=== PATIENT | female | born 1970 | race Caucasian/White ===

== ENCOUNTER → 2017-10-28 | Outpatient (CLI) | payer BC | LOC: WI 08:37 | PROVIDERS: ATTEND Specialist | DX: Z12.31 Encounter for screening mammogram for malignant neoplasm of breast (principal) | CPT/HCPCS: 77067; G0202 ==

== ENCOUNTER → 2017-12-03 | Outpatient (CLI) | payer BC ==
--- NOTE | 2017-12-03 16:58 | WOMENS IMAGING REPORT ---
EXAM DESCRIPTION: 3D DX MAMMO LEFT UNILAT COMPLETED DATE/TIME: 12/03/2017 9:35 am REASON FOR STUDY: NODULAR DENSITY N63.21 UNSPECIFIED LUMP IN THE LEFT BREAST, UPPER OUTER QUAD COMPARISON: Mammograms 10/28/2017 TECHNIQUE: Cone compression craniocaudal and mediolateral oblique images, left whole breast 90 medi olateral image of the breast recorded using digital acquisition and breast tomosynthesis. LIMITATIONS: None. FINDINGS: BREAST: Left MASSES: No suspicious masses. Findings described on screening mammogram 10/28/2017 likely represente d superimposed shadows. No discrete findings are present on today's follow-up cone compression and t omosynthesis images CALCIFICATIONS: No new or suspicious calcifications. ARCHITECTURAL DISTORTION: None. DEVELOPING DENSITY: None. ASYMMETRY: None noted. OTHER: No other significant findings. Read with the assistance of CAD. .[facility] - R2 Cenova Version 1.3 .[facility] - R2 Cenova Version 1.3 .[facility] - R2 Cenova Version 2.4 .[facility] [place] - R2 Cenova Version 2.4 .[facility] - R2 Oyster Shipper Version 9.2 IMPRESSION: No mammographic/ tomosynthesis evidence for malignancy left breast BREAST DENSITY: c. The breasts are heterogeneously dense, which may obscure small masses. BIRAD: 1 Negative. RECOMMENDATION: RECOMMENDED FOLLOW UP: Please continue yearly bilateral screening mammography/ tomos ynthesis in October 2018 SPECIFIC INTERVENTION/IMAGING/CONSULTATION RECOMMENDED:No additional intervention/ imaging/consultati on needed at this time. COMMUNICATION:Patient notified by letter COMMENT: The patient has been notified of the results by letter per MQSA requirements. Additional no tification policies are in place for contacting patient with suspicious or incomplete findings. Quality ID #[id number]: The [employer] recommends an annual screening mammogram for women aged 40 years or over. This facility utilizes a reminder system to ensure that all patients receive reminder letters, and/or direct phone calls for appointments. This includes reminders for routine scr eening mammograms, diagnostic mammograms, or other Breast Imaging Interventions when appropriate. Th is patient will be placed in the appropriate reminder system. The [employer] (ACR) has developed recommendations for screening MRI of the breast s in certain patient populations, to be used in conjunction with mammography. Breast MRI surveillanc e may be appropriate for women with more than 20% lifetime risk of developing breast cancer as deter mined by genetic testing, significant family history of the disease, or history of mantle radiation f or Hodgkins Disease. ACR Practice Guidelines 2008. DBT Technology DBT is a type of tomographic mammography. With conventional mammography, overlapping breast tissue ma y make lesions difficult to detect, even with good compression. DBT uses an x-ray tube that rotates a round the breast, taking images at different angles. These images are then combined to create thin sl ices of the breast that the radiologist can view as a 3D reconstruction. The [employer] can perform full-field digital mammograms (2D imaging); or DBT (3D imaging); or both, in a combination mode that quickly performs both the mammogram and the tomosynthesis scan while the breast is still compressed. PQRS 6045F: Fluoroscopic imaging is not utilized for breast tomosynthesis. TECHNICAL DOCUMENTATION: FINDING NUMBER: (1) ASSESSMENT: (1) JOB ID: [id number] [employer]- All Rights Reserved
== END ==
LOC: WI 08:47
PROVIDERS: ATTEND Specialist
DX: N63.21 Unspecified lump in the left breast, upper outer quadrant (principal)

== ENCOUNTER 2019-10-28 05:34 | Inpatient (IN) | payer BC ==
[2019-10-21 08:46] LABS: HEMATOCRIT 34.7 % (36.0-47.0); HEMOGLOBIN 11.6 g/dL (12.0-15.5); MEAN CORPUSCULAR HEMOGLOBIN 29.1 pg (27.0-33.4); MEAN CORPUSCULAR HGB CONC 33.3 g/dL (32.0-36.0); MEAN CORPUSCULAR VOLUME 87 fl (80-97); PLATELET COUNT 461 10^3/uL (150-450); RED BLOOD COUNT 3.98 10^6/uL (3.72-5.28); RED CELL DISTRIBUTION WIDTH 14.7 % (11.5-14.0)
[2019-10-21 08:50] LABS: APPEARANCE,URINE CLEAR; BILIRUBIN,URINE NEGATIVE (NEGATIVE); COLOR,URINE YELLOW; GLUCOSE, URINE NEGATIVE (NEGATIVE); KETONES,URINE NEGATIVE (NEGATIVE); LEUKOCYTE ESTERASE,URINE NEGATIVE (NEGATIVE); NITRITE,URINE NEGATIVE (NEGATIVE); PROTEIN,URINE NEGATIVE (NEGATIVE); URINE SPECIFIC GRAVITY 1.023; UROBILINOGEN,URINE NEGATIVE mg/dL (<2.0)
[2019-10-21 09:27] LABS: ANION GAP 8 (5-19); BLOOD UREA NITROGEN 16 mg/dL (7-20); CALCIUM 8.9 mg/dL (8.4-10.2); CARBON DIOXIDE 27 mmol/L (22-30); CHLORIDE 105 mmol/L (98-107); GLUCOSE 99 mg/dL (75-110); POTASSIUM 4.2 mmol/L (3.6-5.0)
--- NOTE | 2019-10-21 11:36 | RADIOLOGY REPORT (SQ) ---
EXAM DESCRIPTION: CHEST PA/LATERAL COMPLETED DATE/TIME: 10/21/2019 8:57 am REASON FOR STUDY: PRE-OP COMPARISON: None. EXAM PARAMETERS: NUMBER OF VIEWS: two views TECHNIQUE: Digital Frontal and Lateral radiographic views of the chest acquired. RADIATION DOSE: NA LIMITATIONS: none FINDINGS: LUNGS AND PLEURA: No opacities, masses or pneumothorax. No pleural effusion. MEDIASTINUM AND HILAR STRUCTURES: No masses or contour abnormalities. HEART AND VASCULAR STRUCTURES: Heart normal size. No evidence for failure. BONES: No acute findings. HARDWARE: None in the chest. OTHER: No other significant finding. IMPRESSION: NO SIGNIFICANT RADIOGRAPHIC FINDING IN THE CHEST. TECHNICAL DOCUMENTATION: JOB ID: [id number] [employer]- All Rights Reserved Reading location - IP/workstation name: [email or web address]
--- NOTE | 2019-10-21 19:16 | EKG REPORT ---
SEVERITY:- NORMAL ECG - SINUS RHYTHM : Confirmed by: Alexandra Byrnes MD 21-Oct-2019 19:15:27
[~2019-10-28 05:34] MED LIST: CEFAZOLIN SODIUM 1 GM in DEXTROSE 5%-WATER 50 ML IV PRN; LACTATED RINGERS 1000 ML IV PRN; LIDOCAINE 0.5% INJ-PF (5 MG/ML) 50 ML SDV SUBCUT PRN
[2019-10-28] MEDS ORDERED: ONDANSETRON HCL INJ/PF 4 MG/2 ML SDV ONE (06:59)
[2019-10-28] MEDS ORDERED: MIDAZOLAM 2 MG/2 ML INJ ONE (06:59)
[2019-10-28] MEDS ORDERED: KETOROLAC TROMETHAMINE 60 MG/2 ML SDV ONE (06:59)
[2019-10-28] MEDS ORDERED: FENTANYL CITRATE INJ/PF 100 MCG/2 ML AMPUL ONE (06:59)
[2019-10-28] MEDS ORDERED: DEXAMETHASONE SOD PHOSPHATE INJ 4 MG/1 ML VIAL ONE (06:59)
[2019-10-28] MEDS ORDERED: MORPHINE SULFATE 10 MG/ML INJ ONE (07:00)
[2019-10-28] MEDS ORDERED: PROPOFOL INJ 200 MG/20 ML VIAL IV ONE (07:00)
[2019-10-28] MEDS ORDERED: BUPIVACAINE INJ/PF LIPOSOME/PF 266 MG/20 ML SDV ONE (07:10)
[2019-10-28] MEDS ORDERED: FENTANYL CITRATE INJ/PF 100 MCG/2 ML AMPUL IV PRN ×3 (07:56)
[2019-10-28] MEDS ORDERED: OXYCODONE-ACETAMINOPHEN 5-325 MG TABLET PO PRN ×4 (07:56→08:35)
[2019-10-28] MEDS ORDERED: PROMETHAZINE HCL INJ 25 MG/1 ML VIAL IV PRN ×2 (07:56)
[2019-10-28] MEDS ORDERED: MORPHINE SULFATE 10 MG/ML INJ IV PRN (07:56)
[2019-10-28] MEDS ORDERED: DIPHENHYDRAMINE HCL 50 MG/ML VIAL IV PRN (07:56)
[2019-10-28] MEDS ORDERED: ONDANSETRON HCL INJ/PF 4 MG/2 ML SDV IV PRN (07:56)
[2019-10-28] MEDS ORDERED: MEPERIDINE HCL/PF INJ 25 MG/1 ML DISP.SYRIN IV PRN (07:56)
[2019-10-28] MEDS ORDERED: MORPHINE SULFATE 10 MG/ML INJ IM PRN (08:37)
[2019-10-28] MEDS ORDERED: PROMETHAZINE HCL INJ 25 MG/1 ML VIAL IM PRN (08:37)
[2019-10-28] MEDS: FENTANYL CITRATE INJ/PF 100 MCG/2 ML AMPUL ONE ×2 (08:40→08:45)
[2019-10-28] MEDS ORDERED: EPHEDRINE SULFATE INJ 50 MG/1 ML AMPULE ONE (08:43)
[2019-10-28] MEDS: MORPHINE SULFATE 10 MG/ML INJ ONE ×2 (08:53→09:03)
[2019-10-28] MEDS: MORPHINE SULFATE 10 MG/ML INJ INJ PRN ×6 (10:06→23:09)
[2019-10-28] MEDS: RINGERS SOLUTION,LACTATED 1,000 ML IV PRN ×2 (10:19→20:35)
--- NOTE | 2019-10-28 11:46 | Operative Report ---
Operative Report DATE OF SURGERY: 10/28/19 PREOPERATIVE DIAGNOSIS: Uterine leiomyoma POSTOPERATIVE DIAGNOSIS: Same OPERATION: Total abdominal hysterectomy bilateral salpingectomy SURGEON: KAYLI MCDONOUGH ANESTHESIA: GA TISSUE REMOVED OR ALTERED: Cervix uterus bilateral salpingectomy COMPLICATIONS: None ESTIMATED BLOOD LOSS: 110 mL's INTRAOPERATIVE FINDINGS: 16 to 18-week size uterus normal ovaries normal tubes normal upper abdomen, normal appendix PROCEDURE: Indications for procedure the patient had symptomatic uterine leiomyoma for a number of years desired an attempted definitive therapy and the usual risk of bleeding infection anesthesia damage to other organs and tissues is been discussed the patient and understood. She desires ovarian preservation Procedure Patient was taken to the operating room and under care taken placed on the operative table antibiotics been given preoperatively and she was prepped and draped in the usual manner for a abdominal hysterectomy. Through a midline incision extended subsequent fat and fascia, the peritoneum was then without difficulty and the bladder and uterus exteriorized and brought in the operative field. Alves catheter had been performed prior to this step and surgical timeout had been performed. The anatomy was normalized and values were identified cross clamped cut suture ligated and held. The utero-ovarian ligaments were bilaterally cross clamped cut and suture ligated and cauterized using LigaSure advanced device. This extended down to the level of the uterine vessels which were suture-ligated and the cervix and uterus was handed off the operative field uneventfully. The vagina was then closed in a running interrupted #1 chromic catgut good hemostasis was assured. Attention was turned to the tubes bilaterally which were removed with the LigaSure advanced and handed off the operative field. The ovaries appear to be normal. The fascia was then closed with a double-stranded #1 PDS suture and subcuticular stitch of 3 oh was placed closed with 3-0 plain gut the skin is approximate skin christina. Exparel was used for postoperative analgesia. Patient taken recovery in stable condition
[2019-10-28] MEDS ORDERED: VECURONIUM BROMIDE INJ 10 MG VIAL IV ONE (13:25)
[2019-10-28] MEDS ORDERED: GLYCOPYRROLATE 1 MG/5 ML VIAL ONE (13:25)
[2019-10-28] MEDS ORDERED: SUCCINYLCHOLINE CHLORIDE INJ 200 MG/10 ML VIAL ONE (13:25)
[2019-10-28] MEDS ORDERED: NEOSTIGMINE METHYLSULFATE 10 MG/10 ML VIAL ONE (13:25)
[2019-10-28] MEDS: CEFAZOLIN SODIUM 1 GM in DEXTROSE 5%-WATER 50 ML IV SCH ×2 (14:19→20:35)
[2019-10-28] MEDS: IBUPROFEN 800 MG TABLET PO SCH ×2 (14:19→22:27)
[2019-10-29] MEDS: MORPHINE SULFATE 10 MG/ML INJ INJ PRN ×2 (01:54→06:50)
[2019-10-29] MEDS: IBUPROFEN 800 MG TABLET PO SCH (06:09)
[2019-10-29 07:07] LABS: HEMATOCRIT 35.6 % (36.0-47.0); HEMOGLOBIN 11.8 g/dL (12.0-15.5); MEAN CORPUSCULAR HGB CONC 33.2 g/dL (32.0-36.0); MEAN CORPUSCULAR VOLUME 87 fl (80-97); PLATELET COUNT 423 10^3/uL (150-450); RED BLOOD COUNT 4.08 10^6/uL (3.72-5.28); RED CELL DISTRIBUTION WIDTH 14.9 % (11.5-14.0); WHITE BLOOD COUNT 11.6 10^3/uL (4.0-10.5)
[2019-10-29] MEDS ORDERED: INFLUENZA QUAD (6MOS+) 2019-20 VAC 0.5 ML SYR IM ONE (07:52)
[2019-10-29 08:17] VITALS: BP 130/74
== END 2019-10-29 10:34 | disposition home or self-care (01) | DRG 743 ==
LOC: INOR 05:34 → 2N 09:40
PROVIDERS: ADMIT Specialist; ATTEND Specialist
PROC: 0UT70ZZ Resection of Bilateral Fallopian Tubes, Open Approach (ICD-10-PCS; 2019-10-28)
PROC: 0UT90ZZ Resection of Uterus, Open Approach (ICD-10-PCS; principal; 2019-10-28 07:15)
PROC: 3E0234Z Introduction of Serum, Toxoid and Vaccine into Muscle, Percutaneous Approach (ICD-10-PCS; 2019-10-29)
DX: D25.9 Leiomyoma of uterus, unspecified (principal); Z23 Encounter for immunization
CPT/HCPCS: 36415; 71046; 80048; 81001; 81025; 840; 85027; 86850; 86900; 86901; 88307; 90686; 93005; 93010; C9290; J0330; J0690; J1100; J1885; J2250; J2270; J2405; J2704; J2710; J3010; J3490; J7060; J7120